=== PATIENT | female | born 1965 | race African-American/Black ===

== ENCOUNTER 2019-01-28 11:10 | Emergency (ER) | payer SELFPAY ==
[~2019-01-28] VITALS: Ht 172.7 cm; Wt 75.0 kg
[2019-01-28] MEDS ORDERED: SODIUM CHLORIDE 0.9% 1,000 ML IV ONE (12:30)
[2019-01-28 12:43] LABS: BASOPHILS % 0.3 % (0.0-2.0); EOSINOPHILS % 2.5 % (0.0-5.0); HEMATOCRIT. 38.2 % (36.0-48.0); HEMOGLOBIN. 12.1 g/dL (12.0-16.0); LYMPHOCYTES % 7.1 % (20.0-50.0); MEAN CORPUSCULAR HEMOGLOBIN 26.1 pg (28.0-32.0); MEAN CORPUSCULAR VOLUME 82.7 fL (81.0-99.0); MEAN PLATELET VOLUME 6.7 fl (7.4-10.4); NEUTROPHILS % 85.1 % (40.0-76.0); PLATELET 263 x1000/uL (130-400); RED BLOOD CELL COUNT 4.62 mill/uL (4.2-5.4); RED CELL DISTRIBUTION WIDTH 17.8 % (11.6-14.6)
[2019-01-28 12:50] LABS: CHLORIDE 106 mEq/L (98-107)
[2019-01-28 12:54] LABS: ETHANOL BLOOD < 10 mg/dL
[2019-01-28 15:20] VITALS: BP 167/93
[2019-01-28] MEDS ORDERED: AMLODIPINE 2.5MG TABLET PO ONE (16:00)
[2019-01-28 18:24] LABS: CLARITY URINE CLEAR (CLEAR); COLOR URINE YELLOW (YELLOW); KETONES URINE NEGATIVE (NEGATIVE); LEUKOCYTE ESTERASE URINE NEGATIVE (NEGATIVE); NITRITE URINE NEGATIVE (NEGATIVE); OCCULT BLOOD URINE NEGATIVE (NEGATIVE); PROTEIN URINE 2+ (NEGATIVE); SPECIFIC GRAVITY URINE 1.016 (1.005-1.030); UROBILINOGEN URINE 0.2 E.U./dL (0.2-1.0)
[2019-01-28 18:38] LABS: *AMPHETAMINES SCREEN URINE NEGATIVE (NEGATIVE); *BARBITURATES SCREEN URINE NEGATIVE (NEGATIVE); *BENZODIAZEPINES SCREEN URINE NEGATIVE (NEGATIVE); *COCAINE SCREEN URINE PRESUMTIVE POSITIVE (NEGATIVE); METHADONE URINE SCREEN NEGATIVE (NEGATIVE); OPIATES URINE SCREEN NEGATIVE (NEGATIVE)
[2019-01-28 18:39] LABS: CANNABINOID URINE SCREEN NEGATIVE (NEGATIVE); PHENCYCLIDINE URINE SCREEN NEGATIVE (NEGATIVE)
== END 2019-01-28 16:22 | disposition home or self-care (01) ==
LOC: ER 11:18
DX: R56.9 Unspecified convulsions (principal); I10 Essential (primary) hypertension; D72.810 Lymphocytopenia; D72.0 Genetic anomalies of leukocytes; E86.0 Dehydration
CPT/HCPCS: 36415; 80053; 80165; 80185; 80305; 80320; 81003; 81025; 82542; 82962; 85025; 96360; 96361; 99283; J7030; G0480

== ENCOUNTER 2020-10-24 09:26 | Emergency (ER) | payer BC ==
[~2020-10-24] VITALS: Ht 160 cm; Wt 65.0 kg
[2020-10-24 09:27] VITALS: BP 198/111
[2020-10-24] MEDS ORDERED: ACETAMINOPHEN 325MG TABLET PO ONE (10:45)
[2020-10-24] MEDS ORDERED: BACITRACIN ZINC OINT UDPKT TOP ONE (13:15)
[2020-10-24] MEDS ORDERED: TETANUS, DIPHTHERIA, PERTUSSIS VAC/PF 0.5ML (>7YR OLD) IM ONE (13:15)
== END 2020-10-24 14:57 | disposition home or self-care (01) ==
LOC: ER 09:51
DX: M79.644 Pain in right finger(s) (principal); I10 Essential (primary) hypertension; F14.10 Cocaine abuse, uncomplicated
CPT/HCPCS: 90471; 90715; 99283

== ENCOUNTER 2022-02-14 02:59 | Emergency (ER) | payer BC ==
[~2022-02-14] VITALS: Ht 167.6 cm; Wt 68.0 kg
[2022-02-14] MEDS ORDERED: LEVETIRACETAM 1000MG PREMIX 100 ML IV ONE (03:15)
[2022-02-14 03:53] LABS: BASOPHILS % 0.6 % (0.0-2.0); EOSINOPHILS % 5.1 % (0.0-5.0); HEMATOCRIT. 43.9 % (36.0-48.0); HEMOGLOBIN. 14.7 g/dL (12.0-16.0); LYMPHOCYTES % 27.9 % (20.0-50.0); MEAN CORPUSCULAR HEMOGLOBIN 32.6 pg (28.0-32.0); MEAN CORPUSCULAR VOLUME 97.2 fL (81.0-99.0); MEAN PLATELET VOLUME 7.3 fl (7.4-10.4); MONOCYTES % 8.6 % (2.0-8.0); NEUTROPHILS % 57.8 % (40.0-76.0); PLATELET 209 x1000/uL (130-400); RED BLOOD CELL COUNT 4.52 mill/uL (4.2-5.4); RED CELL DISTRIBUTION WIDTH 13.4 % (11.6-14.6)
[2022-02-14 04:01] LABS: CHLORIDE 109 mEq/L (98-107)
[2022-02-14 04:06] LABS: ETHANOL BLOOD 19 mg/dL
[2022-02-14 04:10] LABS: CLARITY URINE CLEAR (CLEAR); COLOR URINE YELLOW (YELLOW); KETONES URINE NEGATIVE (NEGATIVE); LEUKOCYTE ESTERASE URINE NEGATIVE (NEGATIVE); NITRITE URINE NEGATIVE (NEGATIVE); OCCULT BLOOD URINE NEGATIVE (NEGATIVE); PH URINE 5.5 (4.5-8.0); PROTEIN URINE TRACE (NEGATIVE); UROBILINOGEN URINE 0.2 E.U./dL (0.2-1.0)
[2022-02-14 04:19] LABS: *AMPHETAMINES SCREEN URINE NEGATIVE (NEGATIVE)
[2022-02-14 04:20] LABS: *BARBITURATES SCREEN URINE NEGATIVE (NEGATIVE); *BENZODIAZEPINES SCREEN URINE NEGATIVE (NEGATIVE); *COCAINE SCREEN URINE NEGATIVE (NEGATIVE); CANNABINOID URINE SCREEN NEGATIVE (NEGATIVE); METHADONE URINE SCREEN NEGATIVE (NEGATIVE); OPIATES URINE SCREEN NEGATIVE (NEGATIVE); PHENCYCLIDINE URINE SCREEN NEGATIVE (NEGATIVE)
[2022-02-14] MEDS ORDERED: KEPP500 MT (05:43)
[2022-02-14 06:00] VITALS: BP 150/95
== END 2022-02-14 06:19 | disposition home or self-care (01) ==
LOC: ER 02:59
DX: R56.9 Unspecified convulsions (principal); F14.10 Cocaine abuse, uncomplicated
CPT/HCPCS: 36415; 70450; 80053; 80305; 80320; 81003; 81025; 85025; 96365; 99284; J1953; G0480

== ENCOUNTER 2022-12-14 13:29 | Emergency (ER) | payer BC ==
[~2022-12-14] VITALS: Ht 160 cm; Wt 61.5 kg
[~2022-12-14 13:29] MED LIST: KEPP500 MT
[2022-12-14 13:35] VITALS: BP 196/96
[2022-12-14] MEDS ORDERED: ACETAMINOPHEN 325MG TABLET PO ONE (14:45)
== END 2022-12-14 15:18 | disposition home or self-care (01) ==
LOC: ER 13:29
DX: M25.562 Pain in left knee (principal); F14.10 Cocaine abuse, uncomplicated; Z86.59 Personal history of other mental and behavioral disorders
CPT/HCPCS: 99283